=== PATIENT | female | born 1975 | race Caucasian/White ===

== ENCOUNTER 2018-07-08 10:23 | Emergency (ER) | payer OTHER ==
[2018-07-08] MEDS ORDERED: ALBUTEROL NEB 2.5 MG/3 ML INH STA (11:25)
--- NOTE | 2018-07-08 11:26 | ED Physician Documentation ---
History of Present Illness - Stated complaint Stated Complaint: COUGH/WEAKNESS - Chief complaint Chief Complaint: General - History obtained from History obtained from: Patient - Additonal information Additional information: Patient is a previously healthy 43-year-old female with remote history of asthma for which she does not take medication presenting with general Flulike symptoms onset yesterday. Patient reports no shortness of breath but dry cough. She also complains of fatigue and muscle aches without known fever or chills. Patient Denies any URI symptoms, as well as any abdominal complaints. Patient denies any particular improving or worsening factors to her symptoms. Review of Systems Constitutional: denies: Fever Eyes: denies: Reviewed and negative Ears: denies: Reviewed and negative Nose: denies: Reviewed and negative PD PAST MEDICAL HISTORY - Past Medical History Respiratory: Asthma - Present Medications Home Medications: Ambulatory Orders Medication Instructions Recorded Confirmed Oseltamivir [Tamiflu] 75 mg PO BID #10 capsule 07/08/18 - Allergies Allergies/Adverse Reactions: Allergies Allergy/AdvReac Type Severity Reaction Status Date / Time codeine Allergy Hives Verified 07/08/18 10:46 metronidazole [From Flagyl] Allergy Hives Verified 07/08/18 10:46 Penicillins Allergy Hives Verified 07/08/18 10:46 Sulfa (Sulfonamide Allergy Hives Verified 07/08/18 10:46 Antibiotics) tramadol [From Ultram] Allergy Hives Verified 07/08/18 10:46 PD ED PE NORMAL - General General: Alert and oriented X 3, No acute distress, Well developed/nourished - HEENT HEENT: Atraumatic, Moist mucous membranes, Pharynx benign - Cardiac Cardiac: RRR, No murmur - Respiratory Respiratory: No respiratory distress, Other (Poor air movement throughout with no crackles, but occasional expiratory wheeze particularly at bases bilaterally) - Abdomen Abdomen: Normal bowel sounds, Soft, Non tender, Non distended - Derm Derm: Normal color, Warm and dry, No rash - Extremities Extremities: No deformity - Neuro Neuro: Alert and oriented X 3, No motor deficit, No sensory deficit - Psych Psych: Normal mood, Normal affect Results - Vitals Vitals: Vital Signs - 24 hr 07/08/18 07/08/18 10:40 11:49 Temperature 36.8 C Heart Rate 95 90 Respiratory 16 18 Rate Blood Pressure 130/89 H O2 Saturation 98 Oxygen O2 Source Room air - Labs Labs: Laboratory Tests 07/08/18 10:45 Influenza A (Rapid) POSITIVE H Influenza B (Rapid) Negative PD MEDICAL DECISION MAKING - ED course Complexity details: reviewed results, re-evaluated patient, considered differential, d/w patient ED course: Feel the patient is most likely experiencing influenza, other viral illness, or pneumonia given history, physical exam findings, and symptoms. Also considering asthma, although do not feel she is truly having an asthma exacerbation. Patient received DuoNeb, as well as chest x-ray to further evaluate and treat. Influenza swab also obtained. Lower suspicion for other URI issues, cardiac issues, abdominal issues or otherwise. No other signs of systemic illness except as stated above. Influenza test returned positive. Patient's breathing improved with albuterol treatment. Chest x-ray questionable for possible changes indicative of pneumonia, but feel those are more likely related to her virus. Feel that she is appropriate to initiate Tamiflu as she was in the treatment window for such. Discussed viral versus bacterial etiologies with patient, use of Tamiflu, holding on antibiotics at this time given lower suspicion for true bacterial pneumonia, as well as return precautions and appropriate follow-up. Work note provided. Patient voiced understanding and is comfortable discharge plan. Departure - Departure Disposition: 01 Home, Self Care Clinical Impression: Influenza A Condition: Good Instructions: ED Flu Follow-Up: your,doctor [Other] - Within 3 Days Prescriptions: Oseltamivir [Tamiflu] 75 mg PO BID #10 capsule Comments: Please take Tamiflu as prescribed to address influenza. Recommend supportive care such as ibuprofen/Tylenol, Mucinex, Sudafed and other [id number] medications as needed. Recommend rest and hydration, as well as follow-up with primary care physician in next 2 3 days and return to ED sooner if expands worsening symptoms or other concerns. Forms: Activity restrictions
--- NOTE | 2018-07-08 12:40 | XRAY Report ---
Reason: cough Procedure Date: 07/08/2018 Accession Number: [id number] / [id number] Procedure: XR - Chest 2 View X-Ray CPT Code: 74097 FULL RESULT: EXAM: CHEST RADIOGRAPHY EXAM DATE: 07/08/2018 12:23 PM. CLINICAL HISTORY: Cough. COMPARISON: None. TECHNIQUE: 2 views. FINDINGS: Lungs/Pleura: There is mild hazy left basilar opacity on frontal view without correlate on lateral view. No other focal airspace opacities. No pleural effusion or pneumothorax. Mediastinum: Cardiomediastinal silhouette and pulmonary vasculature are within normal limits. Other: No acute bony abnormality. IMPRESSION: Hazy left basilar opacity, which may represent atelectasis or subtle lingular infiltrate. RADIA
[2018-07-08 18:36] VITALS: BP 132/88
== END 2018-07-08 13:07 | disposition home or self-care (01) ==
LOC: ED 10:23
DX: J10.1 Influenza due to other identified influenza virus with other respiratory manifestations (principal); J45.909 Unspecified asthma, uncomplicated
CPT/HCPCS: 71046; 87275; 87276; 94640; 99283

== ENCOUNTER 2018-09-20 18:33 | Emergency (ER) | payer OTHER ==
--- NOTE | 2018-09-20 18:45 | ED Physician Documentation ---
PD HPI CHEST PAIN - Stated complaint Stated Complaint: TIGHTNESS IN CHEST/PAIN - History obtained from History obtained from: Patient - History of Present Illness Timing - onset: Today Timing - onset during: Eating (Approximately 1 hour after eating) Timing - duration: Hours (4 hours) Timing - details: Abrupt onset Severity Comments: Patient could not rate this on a 1-10 scale. Quality: Pressure Location: Substernal Radiation: Other (Does not radiate) Improved by: Nothing Worsened by: Eating Associated symptoms: No: Shortness of air, Nausea, Vomiting, Feeling faint / dizzy, General Weakness, Palpitations, Cough Similar symptoms before: No diagnosis Recently seen: Not recently seen - Additional information Additional information: This is a 43-year-old woman who ate meat lover pizza last night developed some substernal chest pain it subsequently went away she slept through the night was fine today until she ate another slice of the pizza around 230 this afternoon. The pain has been waxing and waning and she has had issues in the past when she eats spicy food with having the same type of pain. The pain does come to wrap around her chest wall. She came in today because her blood pressure was high recently at the dentist and she had a checked at her doctor's office and so when this pain started she became very concerned because her father had a stroke in the past. Patient has tried Tums in the past when she is gotten the symptoms but none today. She denies history of heartburn. She did not have any nausea or vomiting, did not feel short of breath, has not been coughing. She has not felt dizzy. The pain does not radiate anywhere. She is status post hysterectomy so denies . Denies history of DVT. Review of Systems Constitutional: denies: Fever, Chills Nose: denies: Congestion Throat: denies: Sore throat Cardiac: reports: Chest pain / pressure. denies: Palpitations, Pedal edema Respiratory: denies: Dyspnea, Cough GI: reports: Abdominal Pain. denies: Nausea, Vomiting, Diarrhea : denies: Dysuria, Frequency, Hematuria Skin: denies: Rash PD PAST MEDICAL HISTORY - Past Medical History Respiratory: Asthma - Past Surgical History Past Surgical History: No - Present Medications Home Medications: Ambulatory Orders Medication Instructions Recorded Confirmed Famotidine [Pepcid] 20 mg PO BID #60 tablet 09/20/18 - Allergies Allergies/Adverse Reactions: Allergies Allergy/AdvReac Type Severity Reaction Status Date / Time codeine Allergy Hives Verified 09/20/18 18:45 metronidazole [From Flagyl] Allergy Hives Verified 09/20/18 18:45 Penicillins Allergy Hives Verified 09/20/18 18:45 Sulfa (Sulfonamide Allergy Hives Verified 09/20/18 18:45 Antibiotics) tramadol [From Ultram] Allergy Hives Verified 09/20/18 18:45 - Social History Does the pt smoke?: No Smoking Status: Never smoker Does the pt drink ETOH?: No Does the pt have substance abuse?: No - Immunizations Immunizations are current?: Yes - POLST Patient has POLST: No PD ED PE NORMAL - Vitals Vital signs reviewed: Yes - General General: Alert and oriented X 3, No acute distress, Well developed/nourished, Other (Obese 43-year-old woman who is not in any distress.) - HEENT HEENT: Atraumatic, PERRL, Moist mucous membranes - Neck Neck: Supple, no meningeal sign - Cardiac Cardiac: RRR, No murmur - Respiratory Respiratory: No respiratory distress, Clear bilaterally - Abdomen Abdomen: Normal bowel sounds, No organomegaly, Other (Tender in the epigastric area with some guarding.) - Derm Derm: Normal color, Warm and dry, No rash - Extremities Extremities: No deformity, No edema - Neuro Neuro: Alert and oriented X 3, 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 tutor 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, No motor deficit, No sensory deficit, Normal speech - Psych Psych: Normal mood, Normal affect Results - Vitals Vitals: Vital Signs - 24 hr 09/20/18 09/20/18 09/20/18 18:41 18:45 20:45 Temperature 36.4 C L Heart Rate 99 99 77 Respiratory 16 16 12 Rate Blood Pressure 158/62 H 158/62 H 115/72 O2 Saturation 100 100 100 09/20/18 09/20/18 21:32 21:45 Temperature Heart Rate 76 75 Respiratory 17 14 Rate Blood Pressure 115/72 114/73 O2 Saturation 98 98 Oxygen O2 Source Room air - EKG (time done) 1835 Rate: Rate (enter#) Rhythm: Sinus tachycardia Intervals: Normal CO Ischemia: Normal ST segments, T wave inversion (V1-V6) Compare to prior EKG: Old EKG unavailable - Labs Labs: Laboratory Tests 09/20/18 09/20/18 09/20/18 19:01 19:01 19:10 WBC 7.3 RBC 4.51 Hgb 13.4 Hct 40.7 MCV 90.2 MCH 29.6 MCHC 32.9 RDW 13.5 Plt Count 201 MPV 9.0 Neut # (Auto) 4.1 Lymph # (Auto) 2.4 [place] # (Auto) 0.6 Eos # (Auto) 0.1 Baso # (Auto) 0.1 Absolute Nucleated RBC 0.00 Nucleated RBC % 0.1 Sodium 141 Potassium 4.3 Chloride 105 Carbon Dioxide 25 Anion Gap 11.0 BUN 14 Creatinine 0.8 Estimated GFR (MDRD) 79 L Glucose 99 Calcium 9.4 Total Bilirubin 0.5 AST 31 ALT 54 Alkaline Phosphatase 49 Troponin I < 0.04 Total Protein 7.3 Albumin 4.1 Globulin 3.2 Albumin/Globulin Ratio 1.3 Lipase 40 - Rads (name of study) CXR Radiology: EMP read contemporaneously (Neg CXR), See rad report PD MEDICAL DECISION MAKING - ED course Complexity details: re-evaluated patient, d/w patient, d/w family Departure - Departure Disposition: Home, Self Care Clinical Impression: Chest pain Qualifiers: Chest pain type: unspecified Qualified Code(s): R07.9 - Chest pain, unspecified Condition: Good Instructions: ED Abdominal Pain Gallstone Poss, ED GERD Follow-Up: [facility] [Provider Group] Prescriptions: Famotidine [Pepcid] 20 mg PO BID #60 tablet Comments: Avoid fatty, fried or spicy foods. Take the Pepcid twice a day as prescribed. Make an appointment for follow-up on [facility] next week. I think you need to have an ultrasound done on your gallbladder to make sure this is not gallstones. If the symptoms are getting worse with increasing pain, you develop a fever or you are vomiting and cannot keep anything down you need to return for reevaluation. Discharge Date/Time: 09/20/18 22:11
[2018-09-20 19:20] LABS: BASOPHILS # (AUTO) 0.1 10^3/uL (0.0-0.1); BASOPHILS % (AUTO) 0.8 %; EOSINOPHILS # (AUTO) 0.1 10^3/uL (0.0-0.7); EOSINOPHILS % (AUTO) 1.7 %; HGB - HEMOGLOBIN 13.4 g/dL (12.0-16.0); LYMPHOCYTES # (AUTO) 2.4 10^3/uL (1.5-3.5); LYMPHOCYTES % (AUTO) 32.9 %; MEAN CORPUSCULAR HEMOGLOBIN 29.6 pg (27.0-31.0); MEAN CORPUSCULAR HGB CONC 32.9 g/dL (32.0-36.0); MEAN CORPUSCULAR VOLUME 90.2 fL (81.0-99.0); MONOCYTES # (AUTO) 0.6 10^3/uL (0.0-1.0); MONOCYTES % (AUTO) 8.6 %; NEUTROPHILS # (AUTO) 4.1 10^3/uL (1.5-6.6); PLT - PLATELET COUNT 201 10^3/uL (130-450); RED BLOOD COUNT 4.51 10^6/uL (4.20-5.40); RED CELL DISTRIBUTION WIDTH 13.5 % (12.0-15.0); WHITE BLOOD COUNT 7.3 x10^3/uL (4.8-10.8)
[2018-09-20 19:33] LABS: ALBUMIN 4.1 g/dL (3.2-5.5); ALBUMIN/GLOBULIN RATIO 1.3 (1.0-2.2); BILIRUBIN,TOTAL 0.5 mg/dL (0.2-1.0); CALCIUM 9.4 mg/dL (8.5-10.3); CREATININE 0.8 mg/dL (0.4-1.0); TOTAL PROTEIN 7.3 g/dL (6.7-8.2)
--- NOTE | 2018-09-20 19:34 | XRAY Report ---
Reason: chest pain Procedure Date: 09/20/2018 Accession Number: [id number] / [id number] Procedure: XR - Chest 1 View X-Ray CPT Code: 13016 FULL RESULT: EXAM: CHEST RADIOGRAPHY EXAM DATE: 09/20/2018 07:16 PM. CLINICAL HISTORY: Chest pain. COMPARISON: CHEST 2 VIEW 07/08/2018 12:17 PM. TECHNIQUE: 1 view. FINDINGS: Lungs/Pleura: No focal opacities evident. No pleural effusion. No pneumothorax. Mediastinum: Within exam limitations, the cardiomediastinal contour is normal. Other: None. IMPRESSION: Normal single view chest. RADIA
[2018-09-20] MEDS ORDERED: MAG HYDROX/AL HYDROX/SIMETH 30 ML UDC PO STA (21:06)
[2018-09-20] MEDS ORDERED: LIDOCAINE VISCOUS 2% 15 ML UDC MM STA (21:06)
[2018-09-20] MEDS ORDERED: FAMOTIDINE 20 MG/2 ML VIAL IVP STA (21:31)
[2018-09-20] MEDS ORDERED: KETOROLAC 30 MG/ML VIAL IVP STA (21:36)
[2018-09-20 21:46] VITALS: BP 114/73
== END 2018-09-20 22:11 | disposition home or self-care (01) ==
LOC: ED 18:33
DX: R07.9 Chest pain, unspecified (principal); J45.909 Unspecified asthma, uncomplicated
CPT/HCPCS: 36415; 71045; 80053; 83690; 84484; 85025; 93005; 96374; 96375; 99283; 99284; A9270

== ENCOUNTER 2019-11-05 08:43 | Outpatient (CLI) | payer OTHER ==
--- NOTE | 2019-11-06 09:37 | MRI Report ---
PROCEDURE: Brain W/O INDICATIONS: PROLACTINOMA TECHNIQUE: Noncontrast axial T1 spin echo, axial T2 fast spin echo, sagittal and axial FLAIR, coronal T2 fast sp in echo, axial gradient echo, axial diffusion and ADC through the brain. COMPARISON: None. FINDINGS: Image quality: Excellent. CSF Spaces: Basal cisterns are patent. No extra-axial fluid collections. Ventricles are normal in size and shape. Brain: No intracranial masses or hemorrhage. Lopez/white matter interface is normal. Brainstem appe ars normal. Diffusion-weighted images demonstrate no acute ischemic insult. No chronic ischemic ins ults. Normal intravascular flow voids are present. Pituitary gland has normal size and contour. Skull and face: Calvarium has normal marrow signal. Orbits appear normal. Sinuses: Sinuses and mastoids are clear. IMPRESSION: 1. No intracranial disease process. 2. No abnormal intracranial mass or mass effect. 3. No pituitary mass identified. Please note pituitary microadenoma is not excluded by this study. Re commend MRI of the brain with dynamic post gadolinium imaging through the pituitary fossa if clinical ly indicated. Reviewed by: Mackenzie Samayoa MD, PhD on 11/06/2019 9:36 AM PDT Approved by: Mackenzie Samayoa MD, PhD on 11/06/2019 9:36 AM PDT Station ID: [id number]
== END 2019-11-05 08:44 | disposition home or self-care (01) ==
LOC: DI 08:43
PROVIDERS: ATTEND General Practice
DX: N64.3 Galactorrhea not associated with childbirth (principal); Z86.011 Personal history of benign neoplasm of the brain
CPT/HCPCS: 70551

== ENCOUNTER 2020-02-24 19:28 | Emergency (ER) | payer OTHER ==
--- NOTE | 2020-02-24 20:13 | ED Physician Documentation ---
History of Present Illness - Stated complaint Stated Complaint: RT FOOT PX - Chief complaint Chief Complaint: General - History obtained from History obtained from: Patient - History of Present Illness Timing: How many weeks ago (6) - Additonal information Additional information: 45-year-old female presents emergency department for evaluation of right foot pain that has been present for about 6 weeks. She reports that she wakes up in the morning and she has pain on the plantar surface of her right foot that is excruciating. However after walking for a bit the pain goes away. She is typically able to walk pain-free through the day until she gets home takes off her shoes and then the pain returns. She denies any falls or trauma. No history of similar up until 6 weeks ago. She typically wears wedges and flat toed/soled shoes at work. 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 - Present Medications Home Medications: Ambulatory Orders Medication Instructions Recorded Confirmed Bromocriptine Mesylate [Parlodel] 1 tab PO DAILY 02/24/20 02/24/20 Fluoxetine HCl [Prozac] 10 tab PO DAILY 02/24/20 02/24/20 Ibuprofen [Motrin] 600 mg PO Q6H PRN #30 tab 02/24/20 Levothyroxine [Synthroid] 1 tab PO DAILY 02/24/20 02/24/20 Montelukast [Singulair] 1 tab PO DAILY 02/24/20 02/24/20 Pantoprazole [Protonix] 1 tab PO DAILY 02/24/20 02/24/20 - Allergies Allergies/Adverse Reactions: Allergies Allergy/AdvReac Type Severity Reaction Status Date / Time codeine Allergy Hives Verified 09/20/18 18:45 latex Allergy Rash Verified 02/24/20 19:45 metronidazole [From Flagyl] Allergy Hives Verified 09/20/18 18:45 Penicillins Allergy Hives Verified 09/20/18 18:45 Sulfa (Sulfonamide Allergy Hives Verified 09/20/18 18:45 Antibiotics) tramadol [From Ultram] Allergy Hives Verified 09/20/18 18:45 - Social History Does the pt smoke?: No Smoking Status: Never smoker Does the pt drink ETOH?: No Does the pt have substance abuse?: No - Immunizations Immunizations are current?: Yes - POLST Patient has POLST: No PD ED PE EXPANDED - Extremities Extremities: Right foot (Mild tenderness with palpation of the arch of the foot. No swelling. No pain at the base of the fifth metatarsal. 2+ distal DP pulse. Full range of motion of the ankle in all planes. No Achilles tenderness elicited. Gait normal) Results - Vitals Vitals: Vital Signs - 24 hr 02/24/20 02/24/20 19:40 19:50 Temperature 36.3 C L 36.3 C L Heart Rate 95 95 Respiratory 18 18 Rate Blood Pressure 149/96 H 149/96 H O2 Saturation 99 99 Oxygen O2 Source Room air PD MEDICAL DECISION MAKING - ED course Complexity details: considered differential, d/w patient ED course: 45-year-old female presents the emergency department for evaluation of 6 weeks right foot pain. History and exam is most consistent with acute plantar fasciitis. Will defer imaging as there is no trauma. I have advised patient that she should wear tennis shoes or a shoe similar that has good arch support. I will recommend ibuprofen for discomfort. She is to see the [facility] physician for podiatry referral. Emergent return precautions discussed Departure - Departure Disposition: 01 Home, Self Care Clinical Impression: Plantar fasciitis of right foot Condition: Stable Record reviewed to determine appropriate education?: Yes Instructions: Plantar Fasciitis Tx, ED Plantar Fasciitis Prescriptions: Ibuprofen [Motrin] 600 mg PO Q6H PRN #30 tab PRN Reason: Pain Comments: Gina the pain on the bottom of your foot is most likely plantar fasciitis. This is inflammation of the large tendon that runs on the bottom of your foot. I do recommend that you wear tennis shoes or similar at all times when out of bed. Good arch support is important in helping reduce pain. I have also prescr ibed ibuprofen for discomfort. However in the long-term you should be seen by a food consultant for further evaluation
[2020-02-24 20:24] VITALS: BP 142/88
== END 2020-02-24 20:22 | disposition home or self-care (01) ==
LOC: ED 19:28
DX: M72.2 Plantar fascial fibromatosis (principal)
CPT/HCPCS: 99282; 99283

== ENCOUNTER 2020-07-18 20:46 | Emergency (ER) | payer OTHER ==
[2020-07-18 20:55] VITALS: BP 142/41
--- NOTE | 2020-07-18 20:56 | ED Physician Documentation ---
PD HPI LOWER EXT INJURY - Stated complaint Stated Complaint: GLF,RT ANKLE PX - History obtained from History obtained from: Patient - History of Present Illness PD HPI LOW EXT INJURY LOCATION: Right, Ankle Type of injury: Fall - Additional information Additional information: Few hours ago she Was walking outside and tripped and inverted the right ankle. She landed on the left knee and scraped it, but that does not hurt. Right ankle hurts if she walks or bear weight bears weight, but she can walk. No other injuries. 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 - Present Medications Home Medications: Ambulatory Orders Medication Instructions Recorded Confirmed Bromocriptine Mesylate [Parlodel] 1 tab PO DAILY 02/24/20 02/24/20 Fluoxetine HCl [Prozac] 10 tab PO DAILY 02/24/20 02/24/20 Ibuprofen [Motrin] 600 mg PO Q6H PRN #30 tab 02/24/20 Levothyroxine [Synthroid] 1 tab PO DAILY 02/24/20 02/24/20 Montelukast [Singulair] 1 tab PO DAILY 02/24/20 02/24/20 Pantoprazole [Protonix] 1 tab PO DAILY 02/24/20 02/24/20 - Allergies Allergies/Adverse Reactions: Allergies Allergy/AdvReac Type Severity Reaction Status Date / Time codeine Allergy Hives Verified 07/18/20 20:53 latex Allergy Rash Verified 07/18/20 20:53 metronidazole [From Flagyl] Allergy Hives Verified 07/18/20 20:53 Penicillins Allergy Hives Verified 07/18/20 20:53 Sulfa (Sulfonamide Allergy Hives Verified 07/18/20 20:53 Antibiotics) tramadol [From Ultram] Allergy Hives Verified 07/18/20 20:53 - Social History Does the pt smoke?: No Smoking Status: Never smoker Does the pt drink ETOH?: No Does the pt have substance abuse?: No - Immunizations Immunizations are current?: Yes - POLST Patient has POLST: No PD ED PE NORMAL - Vitals Vital signs reviewed: Yes - General General: Alert and oriented X 3, No acute distress - Extremities Extremities: Other (Tender over the right lateral malleolus and ATFL. No medial or talar dome tenderness. Left knee is nontender. No right foot tenderness.) - Neuro Neuro: Alert and oriented X 3, Normal speech Results - Vitals Vitals: Vital Signs - 24 hr 07/18/20 20:53 Temperature 37.0 C Heart Rate 87 Respiratory 19 Rate Blood Pressure 142/41 H O2 Saturation 100 Oxygen O2 Source Room air - Rads (name of study) Yaya layton XR Radiology: EMP read contemporaneously Departure - Departure Disposition: Home, Self Care Clinical Impression: Right ankle sprain Qualifiers: Encounter type: initial encounter Involved ligament of ankle: anterior talofibular ligament Qualified Code(s): S93.491A - Sprain of other ligament of right ankle, initial encounter Condition: Good Record reviewed to determine appropriate education?: Yes Instructions: ED Sprain Ankle Comments: Followup with your physician in 1 week if not better Forms: Activity restrictions Discharge Date/Time: 07/18/20 21:24
--- NOTE | 2020-07-18 21:26 | XRAY Report ---
PROCEDURE: Ankle 3 View RT INDICATIONS: ankle inj TECHNIQUE: 3 views of the ankle were acquired. COMPARISON: None FINDINGS: Bones: No fractures or dislocations. Small plantar calcaneal spur. Minor spurring at the anterior ti biotalar joint. Ankle mortise is normally aligned. No suspicious bony lesions. Soft tissues: No tibiotalar joint effusion. Achilles tendon appears normal. IMPRESSION: 1. No acute process. 2. Mild degenerative Reviewed by: Maida Villalpando MD on 07/18/2020 9:24 PM PDT Approved by: Maida Villalpando MD on 07/18/2020 9:24 PM PDT Station ID: [id number]
== END 2020-07-18 21:24 | disposition home or self-care (01) ==
LOC: ED 20:46
DX: S93.491A Sprain of other ligament of right ankle, initial encounter (principal); W01.0XXA Fall on same level from slipping, tripping and stumbling without subsequent striking against object, initial encounter; Y93.01 Activity, walking, marching and hiking; M77.31 Calcaneal spur, right foot
CPT/HCPCS: 99282; 99283